=== PATIENT | male | born 1980 | race Caucasian/White ===

== ENCOUNTER 2023-10-12 12:11 | Emergency (ER) | payer OTHER ==
[~2023-10-12] VITALS: Ht 177.8 cm; Wt 72.6 kg
[2023-10-12] MEDS ORDERED: NS 1,000 ML IV SCH (12:25)
[2023-10-12] MEDS ORDERED: Lactated Ringer's 1,000 ML IV ONE (12:30)
[2023-10-12] MEDS ORDERED: Ketorolac Tromethamine 30mg Vial IM ONE (12:45)
== END 2023-10-12 14:05 | disposition home or self-care (01) ==
LOC: ER 12:11
DX: S61.532A Puncture wound without foreign body of left wrist, initial encounter (principal); W34.00XA Accidental discharge from unspecified firearms or gun, initial encounter; F19.10 Other psychoactive substance abuse, uncomplicated
CPT/HCPCS: 12001; 73110; 96372; 99284-25; J1885; J7120